=== PATIENT | male | born 1975 | race Caucasian/White ===

== ENCOUNTER 2016-11-26 05:24 | Inpatient (IN) | payer BC, OTHER ==
[2016-11-25 12:44] VITALS: BMI 35.8
[~2016-11-26] VITALS: Ht 190.5 cm; Wt 123.0 kg
[2016-11-26] VITALS (26 sets, daily range): BP systolic 128–149; BP diastolic 65–91; PULSE 63–100; RESP 6–23; Ht 190.5 cm; Wt 123.0 kg
[2016-11-26] MEDS ORDERED: CEFAZOLIN 2 GM/50 ML (PMX) 50 ML IVPB ONE (06:00)
[2016-11-26] MEDS ORDERED: LACTATED RINGER'S 1,000 ML IV* ONE (06:00)
[2016-11-26] MEDS ORDERED: GELATIN SIZE 100 SPONGE ONE ×2 (06:39→10:21)
[2016-11-26] MEDS ORDERED: HEPARIN 1000 UNITS/ML 10 ML INJ ONE (06:40)
[2016-11-26] MEDS ORDERED: CEFAZOLIN 1 GM INJ ONE ×2 (06:40→14:09)
--- NOTE | 2016-11-26 06:48 | HPN ---
Date/Time of Note Date/Time of Note DATE: 11/26/16 TIME: 06:48 Interval H&P Admission Note Pt. seen H&P reviewed: No system changes ANGELICA DWYER MD Nov 26, 2016 06:48
[2016-11-26] MEDS ORDERED: MIDAZOLAM 1 MG/ML 2 ML INJ ONE (07:38)
[2016-11-26] MEDS ORDERED: PHENYLephrine (100 MCG/ML) 5ML SYG ONE (07:58)
[2016-11-26] MEDS: THROMBIN 5000 UNIT VIAL ONE ×2 (08:36→10:02)
[2016-11-26] MEDS ORDERED: GELATIN SIZE 100 SPONGE TOP ONE (08:36)
[2016-11-26] MEDS ORDERED: HEMOSTATIC MATRIX SYG ZFS ONE (10:02)
[2016-11-26] MEDS ORDERED: THROMBIN 5000 UNIT VIAL ONE (10:22)
[2016-11-26] MEDS ORDERED: hydrALAzine 20 MG INJ ONE (10:43)
[2016-11-26] MEDS ORDERED: LIDOCAINE 2%/EPI 30 ML INJ ONE ×2 (12:14→12:41)
[2016-11-26] MEDS ORDERED: LIDOCAINE 2% (SDV) 5 ML INJ ONE (14:06)
[2016-11-26] MEDS ORDERED: PROPOFOL 40 ML ONE (14:06)
[2016-11-26] MEDS ORDERED: ROCURONIUM 50 MG INJ ONE (14:06)
[2016-11-26] MEDS ORDERED: ONDANSETRON 4 MG INJ ONE (14:07)
[2016-11-26] MEDS ORDERED: HYDROmorphONE 0.2 MG/ML PCA ONE (14:23)
[2016-11-26] MEDS ORDERED: HYDROmorphONE 0.2 MG/ML PCA IV SCH (14:30)
[2016-11-26] MEDS ORDERED: NACL 0.9% 3 ML SYG IV SCH (14:30)
[2016-11-26] MEDS ORDERED: HYDROCODONE/APAP (5/325) TAB PO PRN ×2 (14:30)
[2016-11-26] MEDS ORDERED: DIPHENHYDRAMINE 50 MG CAP PO PRN (14:30)
[2016-11-26] MEDS ORDERED: ONDANSETRON 4 MG INJ IV PRN ×2 (14:30→15:00)
[2016-11-26] MEDS ORDERED: PROCHLORPERAZINE 10 MG TAB PO PRN (14:30)
[2016-11-26] MEDS ORDERED: NALOXONE (0.4 MG/ML) INJ IV PRN (14:30)
[2016-11-26] MEDS ORDERED: MEPERIDINE 25 MG INJ ONE (14:58)
[2016-11-26] MEDS ORDERED: DIPHENHYDRAMINE 50 MG INJ IV PRN (15:00)
[2016-11-26] MEDS ORDERED: HYDROmorphONE (0.2 MG/ML) 10ML SYG IV PRN ×2 (15:00)
[2016-11-26] MEDS ORDERED: FENTAnyl 50 MCG/ML VIAL IV PRN (15:00)
[2016-11-26] MEDS ORDERED: hydrALAzine 20 MG INJ IV PRN (15:00)
[2016-11-26] MEDS ORDERED: LABETALOL HCL 20MG INJ IV PRN (15:00)
[2016-11-26] MEDS ORDERED: MEPERIDINE 25 MG INJ IV PRN (15:00)
[2016-11-26] MEDS ORDERED: METOCLOPRAMIDE 10 MG INJ ONE (15:04)
--- NOTE | 2016-11-26 15:10 | RADRPT ---
PROCEDURE: Intraoperative fluoroscopy. CLINICAL INDICATION: Intraoperative fluoroscopy during lumbar fusion.. TECHNIQUE: 11 spot intraoperative fluoroscopic images were provided. The images were reviewed on a high-resolution PACS workstation. COMPARISON: None available FINDINGS: Multiple spot intraoperative fluoroscopic views were provided during lumbar fusion. The images demo nstrate initial metallic probe at the L4 level. Subsequent images demonstrate anterior lumbar interb cathy fusion at L4-5 with anterior interbody fusion device in place. Subsequent images demonstrate adelaida red pedicle screws in the L4 and L5 vertebral bodies with associated paraspinal fusion rods. The to myranda fluoroscopy time was 240.3 seconds. IMPRESSION: 1. Multiple spot intraoperative fluoroscopic views during anterior posterior interbody fusion at L4 -5 were provided. 2. Please see operative report of the same day for further information. RPTAT: HGAS .Gerhard Barker MD, Date Time Electronically viewed and signed by .Gerhard Barker MD, MD on 11/26/2016 15:10 .S/
--- NOTE | 2016-11-26 15:11 | OPR ---
Date/Time of Note Date/Time of Note DATE: 11/26/16 TIME: 15:00 Operative Report Free Text/Dictation Date of surgery: 11/26/2016 Pre-Operative Diagnosis: L4-L5 grade 1 isthmic spondylolisthesis with Right greater than Left foraminal stenosis Post-Operative Diagnosis: L4-L5 grade 1 isthmic spondylolisthesis with Right greater than Left foraminal stenosis Procedures Perfoemed: 1. Anterior lumbar interbody fusion L4-L5 2. Insertion of interbody PEEK Cage x 1, with locking screws x4 3. Placement of posterior spinal segmental instrumentation L4-5 4. Posterior spinal fusion L4-5 Instrumentation Used: 1. Synfix Rasheed Stand alone PEEK Cage 12mm height/ 6 degrees lordosis 2. 4.0mm self drilling screws 25mm length x 4 3. Small BMP with use of morselized allograft bone 4. NuVasive Reline MAS system percutaneous screws: L4- 6.5 x 55mm x 2; L5 6.5 x 45mm x 2 5. 45mm rods x 2; set screws x 4 Anesthesia: General Estimated Blood Loss: 300 mL Complications: None Surgeon: Angelica Dwyer MD CoSurgeon: Rahat Perez MD Indication for surgery: The patient is a 41 year-old male who presents with an increasing history of low back and right greater than left lower extremity pain. The patient was found to have an unstable isthmic spondylolisthesis at L4- 5 with right greater than left L4 foraminal stenosis. The patient had failed conservative treatments. Risks, benefits and alternatives to an anterior and posterior spinal fusion with instrumentation were explained to the patient in detail. Risks were described as including but not being limited to: bleeding, infection, visceral injury, nerve injury, vascular injury, nonunion, adjacent segment degeneration, instrumentation failure, lack of symptom relief, myocardial infarction, stroke, and pulmonary embolism, and they wished to proceed. Risks involved with the use of BMP including but not limited to increased cancer risk, retrograde ejaculation and radiculitis were also discussed and patient wished to proceed. Procedure in detail: The patient was identified in the preoperative area and taken to the operating room. Rapid induction of general endotracheal anesthesia was performed. Patient was given 2 g of cefazolin for prophylaxis. The patient was positioned in the supine position on the operative table. All bony prominences were well padded. The patient's abdomen and left flank were prepped and draped in the usual sterile fashion. A transverse skin incision was made at the L4-5 level by our vascular surgeon Dr. Perez. After the exposure was completed, I performed a L4-L5 diskectomy. The disc was incised using a sharp 15 mm blade. I then used a granger elevator to loosen the disk material from the superior and inferior endplates. I then used a rongeur to remove the disc material and a series of curved and straight curettes to evacuate the disc space. I also used a series of pituitaries and kerrisons to ensure appropriate end plate preparation. Attention was placed to ensure removal of disk material to bleeding endplates without violation of the endplate. The depth of our diskectome was also checked under C-arm. I then used the trial rasps to prepare and size the disc space and was able to place a 12 mm spacer with 6 degrees of lordosis. To ensure appropriate sizing of the implant, I checked for fit and placement under C arm control and I felt the 6 degree lordotic 12 mm cage gained good lordosis and mandaen of disc height and was an appropriate fit. I also ensured appropriate reduction of the grade 1 isthmic spondylolisthesis. I then inserted the Synfix PEEK 12mm, 6 degree lordotic cage after the trail. This cage was filled with a small BMP (3 sponges ) and morselized bone allograft. Four locking screws (4.0 x 25mm) were then placed using the guide under fluoroscopy . Additional morselized allograft was placed around and anterior to the cage in the disc space. The wound was irrigated. The wound was then closed by our vascular access surgeon in standard technique. The posterior rectus sheath and anterior rectus sheath were both repaired. Sterile dressing was then placed. Attention was then turned toward placement of posterior spinal segmental instrumentation at L4-5 after the patient was flipped carefully to the prone position. All bony prominences were well padded. The patient's lumbar spine was then prepped and draped in sterile fashion. Using intraoperative fluoroscopy, the pedicles were identified at each level (bilateral L4 and L5). Care was taken to alter the fluoroscopic view to have a true AP and lateral at each level. Jamshidi needles were then passed down to the lateral aspect of the pedicles through stab incisions. The Jamshidi needles were malleted into the pedicles (bilateral L4 and L5). These were also performed under EMG guidance. Care was taken to ensure that the needles did not pass the medial wall of the pedicle on the AP view prior to checking that the needle was past the posterior wall of the vertebral body. The needles were then malleted further into the vertebral bodies themselves. Guidewires were passed through the needles and the needles were removed. Taps were applied over the guidewires. Screws were then placed bilaterally at L4 and L5 into the vertebral bodies. AP and lateral views confirmed appropriate placement of the instrumentation. Attention was turned toward the posterior spinal fusion at L4-5. Rods were selected of the appropriate length and placed into the screw heads. End caps were applied and final tightening was performed using a [id number] wrench. The exposed the facet joints were decorticated. A small remaining amount of allograft was placed into the facet joints to facilitate the posterior fusion. The wound was irrigated copiously using normal saline. The fascia was then closed using 0 Vicryl in interrupted fashion. Subcutaneous tissue was closed using 2-0 Vicryl in interrupted fashion. Skin was closed using a running 4-0 Monocryl stitch. The wounds were dressed using Dermabond, sterile gauze and Tegaderm. The patient was returned to the supine position. The patient was extubated immediately postoperatively and taken to the recovery room in stable condition. Patient tolerated the procedure well and left the operating room in stable condition. Anesthesia Type: general Estimated Blood Loss: 250 - 300 ml's Specimens L4-5 disk Pt Condition Post Procedure: stable Disposition: PACU ANGELICA DWYER MD Nov 26, 2016 15:11
[2016-11-26] MEDS ORDERED: MEPERIDINE 25 MG INJ IV ONE (15:17)
[2016-11-26] MEDS ORDERED: METOCLOPRAMIDE 10 MG INJ IV ONE (15:30)
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
[2016-11-26] MEDS: CEFAZOLIN 1 GM/50 ML (PMX) 50 ML IVPB SCH ×2 (18:54→23:49)
[2016-11-26] MEDS: ACETAMINOPHEN 325 MG TAB PO PRN (20:43)
[2016-11-27 00:01] VITALS: BP 128/63; RESP 19
[2016-11-27] MEDS: ACETAMINOPHEN 325 MG TAB PO PRN (01:46)
[2016-11-27 02:00] VITALS: BP 123/71; PULSE 90; RESP 18
[2016-11-27 05:31] LABS: BASOPHILS % 0.2 % (0.0-2.0); HEMATOCRIT 37.9 % (42.0-52.0); HEMOGLOBIN 12.4 g/dl (14.0-18.0); LYMPHOCYTES # 1.9 10^3/ul (0.8-2.9); LYMPHOCYTES % 16.3 % (15.0-51.0); MEAN CORPUSCULAR HEMOGLOBIN 30.6 pg (29.0-33.0); MEAN CORPUSCULAR HGB CONC 32.7 g/dl (32.0-37.0); MEAN CORPUSCULAR VOLUME 93.6 fl (82.0-101.0); MEAN PLATELET VOLUME 8.9 fl (7.4-10.4); MONOCYTE # 1.3 10^3/ul (0.3-0.9); MONOCYTES % 11.2 % (0.0-11.0); PLATELET COUNT 205 10^3/UL (140-415); RED BLOOD COUNT 4.05 10^6/ul (4.70-6.10); RED CELL DISTRIBUTION WIDTH 12.4 % (11.5-14.5); WHITE BLOOD COUNT 11.8 10^3/ul (4.8-10.8)
[2016-11-27] MEDS: CEFAZOLIN 1 GM/50 ML (PMX) 50 ML IVPB SCH ×2 (05:56→13:21)
[2016-11-27 05:58] LABS: CALCIUM 8.4 mg/dl (8.4-10.2); CREATININE 1.04 mg/dl (0.61-1.24); POTASSIUM 4.1 mmol/L (3.5-5.1)
[2016-11-27] MEDS ORDERED: LORAZEPAM 2 MG INJ IV ONE (07:00)
[2016-11-27] MEDS ORDERED: DEXTROSE 5%-0.9% NACL 1,000 ML IV SCH (07:00)
[2016-11-27 08:00] VITALS: BP 122/71; RESP 20
[2016-11-27] MEDS ORDERED: METOCLOPRAMIDE 10 MG INJ IV PRN (12:30)
--- NOTE | 2016-11-27 12:35 | CONS ---
Date/Time of Note Date/Time of Note DATE: 11/27/16 TIME: 12:02 Consultation Date/Type/Reason Admit Date/Time Nov 26, 2016 at 05:24 Initial Consult Date 11/26/16 Type of Consultation: Ortho Spine Referring Provider: ANGELICA DWYER MD 24 HR Interval Summary Free Text/Dictation Ortho Spine Daily Progress Note S: 41 yo male with L4-5 isthmic spondylolisthesis POD#1 s/p L4-5 ALIF with PSIF. Patient had low grade fever x2 over night. He otherwise had no acute events over night. His pain is under good control with Dilaudid SERVICE DELIVERY ANALYST. He will be working with physical therapy today. He complains of some mild low back pain over incision sites. He reports that he is having mostly abdominal pain. He has been tolerating a clear liquid diet. He denies any nausea. He has not had any emesis. He has not passed any gas. He denies any chest pain or shortness of breath. O: VS - Last 72 Hours, by Label Date Time Temp Pulse Resp B/P Pulse Ox O2 Delivery O2 Flow Rate FiO2 11/27/16 08:00 98.9 86 20 122/71 95 11/27/16 07:35 Nasal Cannula 2.0 11/27/16 05:00 20 11/27/16 02:00 98.9 90 18 123/71 96 Nasal Cannula 3.0 11/27/16 00:01 100.2 104 19 128/63 97 11/26/16 22:00 99.3 90 16 129/65 97 Nasal Cannula 3.0 11/26/16 20:00 100.3 100 16 129/70 97 Nasal Cannula 3.0 11/26/16 20:00 Nasal Cannula 3.0 11/26/16 19:40 98.9 106 19 139/65 96 11/26/16 19:00 88 16 145/81 95 Nasal Cannula 3.0 11/26/16 18:00 18 11/26/16 18:00 91 16 147/84 95 Nasal Cannula 3.0 11/26/16 17:30 91 16 142/84 95 Nasal Cannula 3.0 11/26/16 17:00 90 16 149/79 95 Nasal Cannula 3.0 11/26/16 16:45 83 16 128/85 95 Nasal Cannula 3.0 11/26/16 16:30 82 16 141/81 95 Nasal Cannula 3.0 11/26/16 16:15 98.6 82 16 131/83 95 Nasal Cannula 3.0 11/26/16 15:38 80 14 147/79 98 Nasal Cannula 2.0 11/26/16 15:33 80 14 136/79 98 Nasal Cannula 2.0 11/26/16 15:28 84 15 140/83 100 Nasal Cannula 2.0 11/26/16 15:23 84 14 144/87 97 Nasal Cannula 2.0 11/26/16 15:18 86 20 147/91 100 Nasal Cannula 2.0 11/26/16 15:13 94 23 149/76 100 Nasal Cannula 2.0 11/26/16 15:08 92 23 146/71 100 Nasal Cannula 2.0 11/26/16 15:03 74 21 140/86 100 Nasal Cannula 2.0 11/26/16 14:58 82 12 134/80 99 Nasal Cannula 2.0 11/26/16 14:53 86 13 142/70 97 Nasal Cannula 2.0 11/26/16 14:48 86 6 145/73 98 Nasal Cannula 2.0 11/26/16 14:43 86 21 144/75 97 Room Air 11/26/16 14:38 88 12 146/78 97 Room Air 11/26/16 14:38 88 12 146/78 97 Room Air 11/26/16 14:34 98.0 11/26/16 14:33 90 14 145/82 100 Room Air 11/26/16 14:33 90 14 145/82 100 Room Air 11/26/16 14:31 22 11/26/16 14:28 98.0 98 11 144/75 100 Room Air 11/26/16 14:28 98.0 88 11 144/75 100 Room Air 11/26/16 06:14 98.8 63 18 134/77 97 Room Air Physical Exam: General: AAOx3, NAD Spine: Anterior and posterior dressings are C/D/I, LLE: 5/5 HF/KE/TA/GS/EHL; RLE : 5/5 HF/KE, 3/5 TA/GS/EHL, +SILT L3-S1 LLE and decreased sensation globally on right foot (neuro exam unchanged since prior to surgery) Abdomen: moderate distension but soft, mild tenderness to palpation Laboratory Tests Test 11/27/16 04:36 11/27/16 04:37 Sodium Level 142mmol/L Potassium Level 4.1mmol/L Chloride Level 104mmol/L Carbon Dioxide Level 31mmol/L Anion Gap 11 Blood Urea Nitrogen 8mg/dl Creatinine 1.04mg/dl Glucose Level 149mg/dl Calcium Level 8.4mg/dl White Blood Count 11.810^3/ul Red Blood Count 4.0510^6/ul Hemoglobin 12.4g/dl Hematocrit 37.9% Mean Corpuscular Volume 93.6fl Mean Corpuscular Hemoglobin 30.6pg Mean Corpuscular Hemoglobin Concent 32.7g/dl Red Cell Distribution Width 12.4% Platelet Count 60269^3/UL Mean Platelet Volume 8.9fl Neutrophils % 72.0% Lymphocytes % 16.3% Monocytes % 11.2% Eosinophils % 0.0% Basophils % 0.2% Nucleated Red Blood Cells % 0.0/100WBC Neutrophils # (Manual) 8.510^3/ul Lymphocytes # 1.910^3/ul Monocytes # 1.310^3/ul Eosinophils # 0.010^3/ul Basophils # 0.010^3/ul Nucleated Red Blood Cells # 0.010^3/ul A/P:41 yo male with L4-5 isthmic spondylolisthesis POD#1 s/p L4-5 ALIF with PSIF 1. continue clear diet until patient passes gas 2. continue dilaudid SERVICE DELIVERY ANALYST for pain control (patient using very little Dilaudid 0.3 mg x 3 over past 12 hrs); he will use Dilaudid sparingly given abdominal distension 3. IV tylenol 1000mg BID prn pain 4. add reglan 10 mg IV prn nausea and to help with GI motility 5. appreciate med recs and continue IV fluids 6. continue PT Exam/Review of Systems Vital Signs Vitals Vital Signs Date Time Temp Pulse Resp B/P Pulse Ox O2 Delivery O2 Flow Rate FiO2 11/27/16 08:00 98.9 86 20 122/71 95 11/27/16 07:35 Nasal Cannula 2.0 Intake and Output 11/26/16 11/26/16 11/27/16 15:00 23:00 07:00 Intake Total 1600 ml 350 ml 1600 ml Output Total 700 ml 300 ml 2100 ml Balance 900 ml 50 ml -500 ml Results Result Diagram: 11/27/16 0437 11/27/16 0436 Results 24 hrs Laboratory Tests Test 11/27/16 04:36 11/27/16 04:37 Sodium Level 142 Potassium Level 4.1 Chloride Level 104 Carbon Dioxide Level 31 Anion Gap 11 Blood Urea Nitrogen 8 Creatinine 1.04 Glucose Level 149 Calcium Level 8.4 White Blood Count 11.8 H Red Blood Count 4.05 L Hemoglobin 12.4 L Hematocrit 37.9 L Mean Corpuscular Volume 93.6 Mean Corpuscular Hemoglobin 30.6 Mean Corpuscular Hemoglobin Concent 32.7 Red Cell Distribution Width 12.4 Platelet Count 205 Mean Platelet Volume 8.9 Neutrophils % 72.0 Lymphocytes % 16.3 Monocytes % 11.2 H Eosinophils % 0.0 Basophils % 0.2 Nucleated Red Blood Cells % 0.0 Neutrophils # (Manual) 8.5 H Lymphocytes # 1.9 Monocytes # 1.3 H Eosinophils # 0.0 Basophils # 0.0 Nucleated Red Blood Cells # 0.0 Medications Medications Current Medications Acetaminophen/ Hydrocodone Bitart ([place] (5/325)) 1 tab Q4H PRN PO PAIN LEVEL 1 -5; Start 11/26/16 at 14:30 Acetaminophen/ Hydrocodone Bitart 2 tab 2 tab Q4H PRN PO PAIN LEVEL 6-10; Start 11/26/16 at 14:30 Cefazolin Sodium (Ancef 1 Gm/50 ml (Pmx)) 50 ml @ 100 mls/hr Q6 IVPB Last administered on 11/27/16 05:56; Admin Dose 100 MLS/HR; Start 11/26/16 at 18:00; Stop 11/27/16 at 12:29 Prochlorperazine (Compazine) 10 mg Q4H PRN PO NAUSEA AND/OR VOMITING; Start 11/26/16 at 14:30 Ondansetron HCl (Zofran Inj) 4 mg Q6H PRN IV NAUSEA AND/OR VOMITING Last administered on 11/26/16 20:44; Admin Dose 4 MG; Start 11/26/16 at 14:30 Acetaminophen (Tylenol Tab) 650 mg Q4H PRN PO TEMP GREATER THAN 101F OR SILVESTRE Last administered on 11/27/16 01:46; Admin Dose 650 MG; Start 9/6/17 at 14:30 Diphenhydramine HCl (Benadryl) 50 mg Q6H PRN PO PRURITUS; Start 11/26/16 at 14: 30 Hydromorphone HCl (Dilaudid SERVICE DELIVERY ANALYST) Q4PCA IV Last administered on 11/26/16 14:31 ; Admin Dose 6 MG; Start 11/26/16 at 14:30 Naloxone HCl 0.2 mg 0.2 mg Q2M PRN IV RR 8 BREATHS/MIN OR LESS; Start 11/26/16 at 14:30 Dextrose/Sodium Chloride (D5-NS) 1,000 ml @ 100 mls/hr Q10H IV Last administered on 11/27/16 06:52; Admin Dose 100 MLS/HR; Start 11/27/16 at 07:00 ANGELICA DWYER MD Nov 27, 2016 12:35
[2016-11-27] MEDS ORDERED: HYDROmorphONE 0.2 MG/ML PCA IV SCH (13:00)
[2016-11-27] MEDS: ACETAMINOPHEN 1000MG/100ML IV 100 ML IVPB PRN ×2 (13:59→23:08)
[2016-11-27 14:47] VITALS: BP 130/74; RESP 18
[2016-11-27] MEDS: D5W-0.45 NACL + KCL 20 MEQ 1,000 ML IV SCH (16:13)
--- NOTE | 2016-11-27 18:26 | CONS ---
Date/Time of Note Date/Time of Note DATE: 11/27/16 TIME: 18:22 Assessment/Plan Assessment/Plan Problems: (1) Postoperative ileus Status: Acute Comment: This complication was expected as a possibility due to anterior approach in his spinal surgery. Patient will be made n.p.o. and placed on IV dextrose with half-normal saline and potassium at maintenance. Once his appetite returns, will Hep-Lock IV fluid. Will monitor this with you. (2) Aftercare following surgery of the musculoskeletal system Status: Acute Comment: Besides the ileus patient is otherwise doing fair on postop day #1. Will monitor for other potential medical issues as they might arise. Consultation Date/Type/Reason Admit Date/Time Nov 26, 2016 at 05:24 Initial Consult Date 11/26/16 Type of Consultation: Medicine Reason for Consultation Medical management Referring Provider: ANGELICA DWYER MD 24 HR Interval Summary Constitutional: requiring IVF Detailed Summary Respiratory: no complaints Cardiovascular: no complaints Gastrointestinal: decreased appetite, flatus, other (Distended, bloated, and gassy), pain Genitourinary: no complaints Musculoskeletal: back pain, bone/joint pain (Right ankle) Neurologic: no complaints Exam/Review of Systems Vital Signs Vitals VS - Last 72 Hours, by Label Date Time Temp Pulse Resp B/P Pulse Ox O2 Delivery O2 Flow Rate FiO2 11/27/16 17:00 16 11/27/16 14:47 99.8 92 18 130/74 99 11/27/16 13:30 16 11/27/16 09:00 16 11/27/16 08:00 98.9 86 20 122/71 95 11/27/16 07:35 Nasal Cannula 2.0 11/27/16 05:00 20 11/27/16 02:00 98.9 90 18 123/71 96 Nasal Cannula 3.0 11/27/16 00:01 100.2 104 19 128/63 97 11/26/16 22:00 99.3 90 16 129/65 97 Nasal Cannula 3.0 11/26/16 20:00 100.3 100 16 129/70 97 Nasal Cannula 3.0 11/26/16 20:00 Nasal Cannula 3.0 11/26/16 19:40 98.9 106 19 139/65 96 11/26/16 19:00 88 16 145/81 95 Nasal Cannula 3.0 11/26/16 18:00 18 11/26/16 18:00 91 16 147/84 95 Nasal Cannula 3.0 11/26/16 17:30 91 16 142/84 95 Nasal Cannula 3.0 11/26/16 17:00 90 16 149/79 95 Nasal Cannula 3.0 11/26/16 16:45 83 16 128/85 95 Nasal Cannula 3.0 11/26/16 16:30 82 16 141/81 95 Nasal Cannula 3.0 11/26/16 16:15 98.6 82 16 131/83 95 Nasal Cannula 3.0 11/26/16 15:38 80 14 147/79 98 Nasal Cannula 2.0 11/26/16 15:33 80 14 136/79 98 Nasal Cannula 2.0 11/26/16 15:28 84 15 140/83 100 Nasal Cannula 2.0 11/26/16 15:23 84 14 144/87 97 Nasal Cannula 2.0 11/26/16 15:18 86 20 147/91 100 Nasal Cannula 2.0 11/26/16 15:13 94 23 149/76 100 Nasal Cannula 2.0 11/26/16 15:08 92 23 146/71 100 Nasal Cannula 2.0 11/26/16 15:03 74 21 140/86 100 Nasal Cannula 2.0 11/26/16 14:58 82 12 134/80 99 Nasal Cannula 2.0 11/26/16 14:53 86 13 142/70 97 Nasal Cannula 2.0 11/26/16 14:48 86 6 145/73 98 Nasal Cannula 2.0 11/26/16 14:43 86 21 144/75 97 Room Air 11/26/16 14:38 88 12 146/78 97 Room Air 11/26/16 14:38 88 12 146/78 97 Room Air 11/26/16 14:34 98.0 11/26/16 14:33 90 14 145/82 100 Room Air 11/26/16 14:33 90 14 145/82 100 Room Air 11/26/16 14:31 22 11/26/16 14:28 98.0 98 11 144/75 100 Room Air 11/26/16 14:28 98.0 88 11 144/75 100 Room Air 11/26/16 06:14 98.8 63 18 134/77 97 Room Air Vital Signs Date Time Temp Pulse Resp B/P Pulse Ox O2 Delivery O2 Flow Rate FiO2 11/27/16 17:00 16 11/27/16 14:47 99.8 92 130/74 99 11/27/16 07:35 Nasal Cannula 2.0 Intake and Output 11/26/16 11/26/16 11/27/16 15:00 23:00 07:00 Intake Total 1600 ml 350 ml 1600 ml Output Total 700 ml 300 ml 2100 ml Balance 900 ml 50 ml -500 ml Exam Constitutional: alert, obese, oriented Psych: nl mood/affect, no complaints Respiratory: clear to auscultation, normal air movement Cardiovascular: nl pulses, regular rate and rhythm Gastrointestinal: distended, nl liver, spleen, soft, tender (Diffuse), No bowel sounds, No mass, No non-tender, No rebound or guarding Musculoskeletal: nl extremities to inspection Extremities: normal pulses, No clubbing, No cyanosis, No edema Neurological: DEPARTMENT ASSISTANT II-XII intact, nl mental status, nl speech, nl strength Results Result Diagram: 11/27/167 11/27/16 0436 Results 24 hrs Laboratory Tests Test 11/27/16 04:36 11/27/16 04:37 Sodium Level 142 Potassium Level 4.1 Chloride Level 104 Carbon Dioxide Level 31 Anion Gap 11 Blood Urea Nitrogen 8 Creatinine 1.04 Glucose Level 149 Calcium Level 8.4 White Blood Count 11.8 H Red Blood Count 4.05 L Hemoglobin 12.4 L Hematocrit 37.9 L Mean Corpuscular Volume 93.6 Mean Corpuscular Hemoglobin 30.6 Mean Corpuscular Hemoglobin Concent 32.7 Red Cell Distribution Width 12.4 Platelet Count 205 Mean Platelet Volume 8.9 Neutrophils % 72.0 Lymphocytes % 16.3 Monocytes % 11.2 H Eosinophils % 0.0 Basophils % 0.2 Nucleated Red Blood Cells % 0.0 Neutrophils # (Manual) 8.5 H Lymphocytes # 1.9 Monocytes # 1.3 H Eosinophils # 0.0 Basophils # 0.0 Nucleated Red Blood Cells # 0.0 Medications Medications Current Medications Acetaminophen/ Hydrocodone Bitart ([place] (5/325)) 1 tab Q4H PRN PO PAIN LEVEL 1 -5; Start 11/26/16 at 14:30 Acetaminophen/ Hydrocodone Bitart ([place] (5/325)) 2 tab Q4H PRN PO PAIN LEVEL 6 -10; Start 11/26/16 at 14:30 Ondansetron HCl (Zofran Inj) 4 mg Q6H PRN IV NAUSEA AND/OR VOMITING Last administered on 11/26/16 20:44; Admin Dose 4 MG; Start 11/26/16 at 14:30 Acetaminophen (Tylenol Tab) 650 mg Q4H PRN PO TEMP GREATER THAN 101F OR SILVESTRE Last administered on 11/27/16 01:46; Admin Dose 650 MG; Start 11/26/16 at 14:30 Diphenhydramine HCl (Benadryl) 50 mg Q6H PRN PO PRURITUS; Start 11/26/16 at 14: 30 Naloxone HCl (Narcan) 0.2 mg Q2M PRN IV RR 8 BREATHS/MIN OR LESS; Start at 14:30 Metoclopramide HCl (Reglan) 10 mg BID PRN IV NAUSEA Last administered on 13:59; Admin Dose 10 MG; Start 11/27/16 at 12:30 Simethicone 160 mg 160 mg BID PRN PO DISTENSION/GAS/BLOATING Last administered on 11/27/16 13:59; Admin Dose 160 MG; Start 11/27/16 at 12:30 Acetaminophen (Ofirmev 1000mg/ 100ml Iv) 100 ml @ 400 mls/hr BID PRN IVPB MODERATE PAIN LEVEL 4-6 Last administered on 11/27/16 13:59; Admin Dose 400 MLS/ HR; Start 11/27/16 at 12:30 Hydromorphone HCl (Dilaudid MEDICAL FIELD REPRESENTATIVE) Q4PCA IV ; Start 11/27/16 at 13:00 Cyclobenzaprine HCl 5 mg 5 mg TID PRN PO MUSCLE SPASMS; Start 11/27/16 at 13:30 Potassium Chloride/Dextrose/ Sod Cl (D5-1/2ns + KCl 20 Meq) 1,000 ml @ 125 mls/ hr Q8H IV Last administered on 11/27/16 16:13; Admin Dose 125 MLS/HR; Start 11/27/16 at 13:30 ENID AMAYA MD Nov 27, 2016 18:26
[2016-11-27 19:40] VITALS: BP 135/74; RESP 20
[2016-11-27] MEDS: CYCLOBENZAPRINE 10 MG TAB PO PRN (21:29)
[2016-11-27 22:10] VITALS: BP 138/79; PULSE 97
[2016-11-28] MEDS: D5W-0.45 NACL + KCL 20 MEQ 1,000 ML IV SCH (00:31)
[2016-11-28 02:30] VITALS: BP 136/78; PULSE 88; RESP 18
[2016-11-28 08:10] VITALS: BP 133/60; RESP 18
--- NOTE | 2016-11-28 08:46 | CONS ---
Date/Time of Note Date/Time of Note DATE: 11/28/16 TIME: 08:33 Consultation Date/Type/Reason Admit Date/Time Nov 26, 2016 at 05:24 Initial Consult Date 11/26/16 Type of Consultation: Ortho Spine Referring Provider: ANGELICA DWYER MD 24 HR Interval Summary Free Text/Dictation Ortho Spine Daily Progress Note S: 41 yo male with L4-5 isthmic spondylolisthesis POD#2 s/p L4-5 ALIF with PSIF. Patient had no acute events over-night. He is passing gas and now tolerating clears. He will be working with physical therapy today. He complains of some mild low back pain over incision sites. He reports improvement in his abdominal pain. He has been tolerating a clear liquid diet. He is passing gas. He denies any nausea. He has not had any emesis. He denies any chest pain or shortness of breath. He was out of bed to a chair yesterday but had an episode of orthostatic hypotension when he got up with physical therapy. O: Physical Exam: General: AAOx3, NAD Spine: Anterior and posterior dressings are C/D/I, LLE: 5/5 HF/KE/TA/GS/EHL; RLE : 5/5 HF/KE, 3/5 TA/GS/EHL, +SILT L3-S1 LLE and decreased sensation globally on right foot (neuro exam unchanged since prior to surgery) Abdomen: mild to moderate abdominal distension improved from yesterday, mild tenderness to palpation, +BS Laboratory Tests Test 11/27/16 04:36 11/27/16 04:37 Sodium Level 142mmol/L Potassium Level 4.1mmol/L Chloride Level 104mmol/L Carbon Dioxide Level 31mmol/L Anion Gap 11 Blood Urea Nitrogen 8mg/dl Creatinine 1.04mg/dl Glucose Level 149mg/dl Calcium Level 8.4mg/dl White Blood Count 11.810^3/ul Red Blood Count 4.0510^6/ul Hemoglobin 12.4g/dl Hematocrit 37.9% Mean Corpuscular Volume 93.6fl Mean Corpuscular Hemoglobin 30.6pg Mean Corpuscular Hemoglobin Concent 32.7g/dl Red Cell Distribution Width 12.4% Platelet Count 57598^3/UL Mean Platelet Volume 8.9fl Neutrophils % 72.0% Lymphocytes % 16.3% Monocytes % 11.2% Eosinophils % 0.0% Basophils % 0.2% Nucleated Red Blood Cells % 0.0/100WBC Neutrophils # (Manual) 8.510^3/ul Lymphocytes # 1.910^3/ul Monocytes # 1.310^3/ul Eosinophils # 0.010^3/ul Basophils # 0.010^3/ul Nucleated Red Blood Cells # 0.010^3/ul A/P:41 yo male with L4-5 isthmic spondylolisthesis POD#2 s/p L4-5 ALIF with PSIF 1. advance diet to regular 2. D/C DIRECTOR OF RECRUITMENT AND ADMISSIONS and start PO [place] 3. D/C haddad catheter 4. IV tylenol 1000mg BID prn pain 5. continue PT Exam/Review of Systems Vital Signs Vitals Vital Signs Date Time Temp Pulse Resp B/P Pulse Ox O2 Delivery O2 Flow Rate FiO2 11/28/16 08:10 98.0 91 18 133/60 96 11/28/16 02:30 Room Air 11/27/16 07:35 2.0 Intake and Output 11/27/16 11/27/16 11/28/16 14:59 22:59 06:59 Intake Total 1575 ml 800 ml Output Total 1100 ml 1700 ml Balance 475 ml -900 ml Results Result Diagram: 11/27/167 11/27/16435 Medications Medications Current Medications Acetaminophen/ Hydrocodone Bitart ([place] (5/325)) 1 tab Q4H PRN PO PAIN LEVEL 1 -5; Start 11/26/16 at 14:30 Acetaminophen/ Hydrocodone Bitart ([place] (5/325)) 2 tab Q4H PRN PO PAIN LEVEL 6 -10; Start 11/26/16 at 14:30 Ondansetron HCl (Zofran Inj) 4 mg Q6H PRN IV NAUSEA AND/OR VOMITING Last administered on 11/26/16 20:44; Admin Dose 4 MG; Start 11/26/16 at 14:30 Acetaminophen (Tylenol Tab) 650 mg Q4H PRN PO TEMP GREATER THAN 101F OR SILVESTRE Last administered on 11/27/16 01:46; Admin Dose 650 MG; Start 11/26/16 at 14:30 Diphenhydramine HCl (Benadryl) 50 mg Q6H PRN PO PRURITUS; Start 11/26/16 at 14: 30 Naloxone HCl (Narcan) 0.2 mg Q2M PRN IV RR 8 BREATHS/MIN OR LESS; Start at 14:30 Metoclopramide HCl (Reglan) 10 mg BID PRN IV NAUSEA Last administered on 13:59; Admin Dose 10 MG; Start 11/27/16 at 12:30 Simethicone (Mylicon) 160 mg BID PRN PO DISTENSION/GAS/BLOATING Last administered on 11/27/16 13:59; Admin Dose 160 MG; Start 11/27/16 at 12:30 Cyclobenzaprine HCl (Flexeril) 5 mg TID PRN PO MUSCLE SPASMS Last administered on 11/27/16 21:29; Admin Dose 5 MG; Start 11/27/16 at 13:30 ANGELICA DWYER MD Nov 28, 2016 08:45
[2016-11-28] MEDS: CYCLOBENZAPRINE 10 MG TAB PO PRN ×2 (10:26→21:31)
[2016-11-28 15:18] VITALS: BP 128/64; RESP 18
--- NOTE | 2016-11-28 18:01 | CONS ---
Date/Time of Note Date/Time of Note DATE: 11/28/16 TIME: 17:57 Assessment/Plan Assessment/Plan Problems: (1) Postoperative ileus Status: Resolved Comment: Patient resuming diet. Monitor to see how it is tolerated (2) Aftercare following surgery of the musculoskeletal system Status: Acute Comment: Patient improving dramatically on postop day #2, continue physical therapy and ambulation. Pain well controlled. Possibly ready for discharge tomorrow. Will defer to primary team. Consultation Date/Type/Reason Admit Date/Time Nov 26, 2016 at 05:24 Initial Consult Date 11/26/16 Type of Consultation: Endocrinology Reason for Consultation Medical management Referring Provider: ANGELICA DWYER MD 24 HR Interval Summary Constitutional: improved, no complaints Detailed Summary Respiratory: no complaints Cardiovascular: no complaints Gastrointestinal: flatus, other (Bloating), No decreased appetite Genitourinary: no complaints Musculoskeletal: back pain (Improved versus yesterday, now able to ambulate with physical therapy) Neurologic: no complaints Exam/Review of Systems Vital Signs Vitals VS - Last 72 Hours, by Label Date Time Temp Pulse Resp B/P Pulse Ox O2 Delivery O2 Flow Rate FiO2 11/28/16 15:18 97.8 90 18 128/64 94 11/28/16 08:10 98.0 91 18 133/60 96 11/28/16 02:30 99.0 88 18 136/78 94 Room Air 11/28/16 01:00 18 11/27/16 22:10 98.9 97 138/79 11/27/16 21:00 18 11/27/16 19:40 99.2 76 20 135/74 91 11/27/16 17:00 16 11/27/16 14:47 99.8 92 18 130/74 99 11/27/16 13:30 16 11/27/16 09:00 16 11/27/16 08:00 98.9 86 20 122/71 95 11/27/16 07:35 Nasal Cannula 2.0 11/27/16 05:00 20 11/27/16 02:00 98.9 90 18 123/71 96 Nasal Cannula 3.0 11/27/16 00:01 100.2 104 19 128/63 97 11/26/16 22:00 99.3 90 16 129/65 97 Nasal Cannula 3.0 11/26/16 20:00 100.3 100 16 129/70 97 Nasal Cannula 3.0 11/26/16 20:00 Nasal Cannula 3.0 11/26/16 19:40 98.9 106 19 139/65 96 11/26/16 19:00 88 16 145/81 95 Nasal Cannula 3.0 11/26/16 18:00 18 11/26/16 18:00 91 16 147/84 95 Nasal Cannula 3.0 11/26/16 17:30 91 16 142/84 95 Nasal Cannula 3.0 11/26/16 17:00 90 16 149/79 95 Nasal Cannula 3.0 11/26/16 16:45 83 16 128/85 95 Nasal Cannula 3.0 11/26/16 16:30 82 16 141/81 95 Nasal Cannula 3.0 11/26/16 16:15 98.6 82 16 131/83 95 Nasal Cannula 3.0 11/26/16 15:38 80 14 147/79 98 Nasal Cannula 2.0 11/26/16 15:33 80 14 136/79 98 Nasal Cannula 2.0 11/26/16 15:28 84 15 140/83 100 Nasal Cannula 2.0 11/26/16 15:23 84 14 144/87 97 Nasal Cannula 2.0 11/26/16 15:18 86 20 147/91 100 Nasal Cannula 2.0 11/26/16 15:13 94 23 149/76 100 Nasal Cannula 2.0 11/26/16 15:08 92 23 146/71 100 Nasal Cannula 2.0 11/26/16 15:03 74 21 140/86 100 Nasal Cannula 2.0 11/26/16 14:58 82 12 134/80 99 Nasal Cannula 2.0 11/26/16 14:53 86 13 142/70 97 Nasal Cannula 2.0 11/26/16 14:48 86 6 145/73 98 Nasal Cannula 2.0 11/26/16 14:43 86 21 144/75 97 Room Air 11/26/16 14:38 88 12 146/78 97 Room Air 11/26/16 14:38 88 12 146/78 97 Room Air 11/26/16 14:34 98.0 11/26/16 14:33 90 14 145/82 100 Room Air 11/26/16 14:33 90 14 145/82 100 Room Air 11/26/16 14:31 22 11/26/16 14:28 98.0 98 11 144/75 100 Room Air 11/26/16 14:28 98.0 88 11 144/75 100 Room Air 11/26/16 06:14 98.8 63 18 134/77 97 Room Air Vital Signs Date Time Temp Pulse Resp B/P Pulse Ox O2 Delivery O2 Flow Rate FiO2 11/28/16 15:18 97.8 90 18 128/64 94 11/28/16 02:30 Room Air 11/27/16 07:35 2.0 Intake and Output 11/27/16 11/27/16 11/28/16 15:00 23:00 07:00 Intake Total 1575 ml 800 ml Output Total 1100 ml 1700 ml Balance 475 ml -900 ml Exam Constitutional: alert, obese, oriented Psych: nl mood/affect, no complaints Respiratory: clear to auscultation, normal air movement Cardiovascular: nl pulses, regular rate and rhythm, No edema, No murmurs/extra sounds, No rub Gastrointestinal: bowel sounds, nl liver, spleen, soft, tender (Bilateral lower quadrant), No mass, No non-tender, No rebound or guarding Musculoskeletal: nl extremities to inspection Extremities: normal pulses, No clubbing, No cyanosis, No edema Neurological: CLEANER TOUCH UP WORKER II-XII intact, nl mental status, nl speech, nl strength Results Result Diagram: 11/27/1643611/27/166 Medications Medications Current Medications Acetaminophen/ Hydrocodone Bitart ([place] (5/325)) 1 tab Q4H PRN PO PAIN LEVEL 1 -5; Start 11/26/16 at 14:30 Acetaminophen/ Hydrocodone Bitart ([place] (5/325)) 2 tab Q4H PRN PO PAIN LEVEL 6 -10; Start 11/26/16 at 14:30 Ondansetron HCl (Zofran Inj) 4 mg Q6H PRN IV NAUSEA AND/OR VOMITING Last administered on 11/26/16 20:44; Admin Dose 4 MG; Start 11/26/16 at 14:30 Acetaminophen (Tylenol Tab) 650 mg Q4H PRN PO TEMP GREATER THAN 101F OR SILVESTRE Last administered on 11/27/16 01:46; Admin Dose 650 MG; Start 11/26/16 at 14:30 Diphenhydramine HCl (Benadryl) 50 mg Q6H PRN PO PRURITUS; Start 11/26/16 at 14: 30 Naloxone HCl (Narcan) 0.2 mg Q2M PRN IV RR 8 BREATHS/MIN OR LESS; Start at 14:30 Metoclopramide HCl (Reglan) 10 mg BID PRN IV NAUSEA Last administered on 13:59; Admin Dose 10 MG; Start 11/27/16 at 12:30 Simethicone (Mylicon) 160 mg BID PRN PO DISTENSION/GAS/BLOATING Last administered on 11/27/16 13:59; Admin Dose 160 MG; Start 11/27/16 at 12:30 Cyclobenzaprine HCl (Flexeril) 5 mg TID PRN PO MUSCLE SPASMS Last administered on 11/28/16 10:26; Admin Dose 5 MG; Start 11/27/16 at 13:30 ENID AMAYA MD Nov 28, 2016 18:01
[2016-11-28 19:21] VITALS: BP 121/66; RESP 22
[2016-11-29 02:43] VITALS: BP 130/78; RESP 19
[2016-11-29 08:02] VITALS: BP 128/78; RESP 18
--- NOTE | 2016-11-29 11:00 | PDOCDIS ---
Discharge Instructions CONDITION Patient Condition: Good HOME CARE INSTRUCTIONS: Diet Instructions: Regular ACTIVITY: Activity Restrictions: Slowly Increase Activity Rest between Activity Avoid heavy lifting Do not operate Machinery Do not operate Power Tool Avoid Heavy Housework Bathing Restrictions: Shower FOLLOW UP/APPOINTMENTS Follow-up Plan Follow-up with Dr. Dwyer in 2 weeks ANGELICA DWYER MD Nov 29, 2016 11:00
[2016-11-29] MEDS ORDERED: CYCL-319 PO (11:02)
--- NOTE | 2016-11-29 11:32 | CONS ---
Date/Time of Note Date/Time of Note DATE: 11/29/16 TIME: 11:27 Consultation Date/Type/Reason Admit Date/Time Nov 26, 2016 at 05:24 Initial Consult Date 11/26/16 Type of Consultation: Ortho Spine Reason for Consultation Ortho Spine Daily Progress Note S: 41 yo male with L4-5 isthmic spondylolisthesis POD#3 s/p L4-5 ALIF with PSIF. Patient had no acute events over-night. He is tolerating a regular diet. He is passing gas. He had a BMx2. Jones was D/C yesterday and patient is urinating without difficulty. He walked 500ft x 2 with PT and has been cleared for discharge. He reports minimal pain and has only been taking flexeril for pain control. He reports improvement in his abdominal pain. He denies any nausea. He has not had any emesis. He denies any chest pain or shortness of breath. He reports improvement in back pain. O: Physical Exam: General: AAOx3, NAD Spine: Anterior and posterior incisions are C/D/I, LLE: 5/5 HF/KE/TA/GS/EHL; RLE : 5/5 HF/KE, 3/5 TA/GS/EHL, +SILT L3-S1 LLE and decreased sensation globally on right foot (neuro exam unchanged since prior to surgery) Abdomen: mildl distension improved from yesterday, no tenderness to palpation, + BS Laboratory Tests Test 11/27/16 04:36 11/27/16 04:37 Sodium Level 142mmol/L Potassium Level 4.1mmol/L Chloride Level 104mmol/L Carbon Dioxide Level 31mmol/L Anion Gap 11 Blood Urea Nitrogen 8mg/dl Creatinine 1.04mg/dl Glucose Level 149mg/dl Calcium Level 8.4mg/dl White Blood Count 11.810^3/ul Red Blood Count 4.0510^6/ul Hemoglobin 12.4g/dl Hematocrit 37.9% Mean Corpuscular Volume 93.6fl Mean Corpuscular Hemoglobin 30.6pg Mean Corpuscular Hemoglobin Concent 32.7g/dl Red Cell Distribution Width 12.4% Platelet Count 40484^3/UL Mean Platelet Volume 8.9fl Neutrophils % 72.0% Lymphocytes % 16.3% Monocytes % 11.2% Eosinophils % 0.0% Basophils % 0.2% Nucleated Red Blood Cells % 0.0/100WBC Neutrophils # (Manual) 8.510^3/ul Lymphocytes # 1.910^3/ul Monocytes # 1.310^3/ul Eosinophils # 0.010^3/ul Basophils # 0.010^3/ul Nucleated Red Blood Cells # 0.010^3/ul A/P:41 yo male with L4-5 isthmic spondylolisthesis POD#3 s/p L4-5 ALIF with PSIF 1. continue regular diet 2. X-Rays today (2 views Lumbar spine upright standing) 3. D/C home today 4. dressing change performed Referring Provider: ANGELICA DWYER MD Exam/Review of Systems Vital Signs Vitals Vital Signs Date Time Temp Pulse Resp B/P Pulse Ox O2 Delivery O2 Flow Rate FiO2 11/29/16 08:02 99.0 82 18 128/78 95 11/28/16 02:30 Room Air 11/27/16 07:35 2.0 Intake and Output 11/28/16 11/28/16 11/29/16 15:00 23:00 07:00 Intake Total 400 ml 940 ml Output Total 500 ml 800 ml Balance -100 ml 140 ml Results Result Diagram: 11/27/16 0437 11/27/16 0436 Medications Medications Current Medications Acetaminophen/ Hydrocodone Bitart ([place] (5/325)) 1 tab Q4H PRN PO PAIN LEVEL 1 -5; Start 11/26/16 at 14:30 Acetaminophen/ Hydrocodone Bitart ([place] (5/325)) 2 tab Q4H PRN PO PAIN LEVEL 6 -10; Start 11/26/16 at 14:30 Ondansetron HCl (Zofran Inj) 4 mg Q6H PRN IV NAUSEA AND/OR VOMITING Last administered on 11/26/16 20:44; Admin Dose 4 MG; Start 11/26/16 at 14:30 Acetaminophen (Tylenol Tab) 650 mg Q4H PRN PO TEMP GREATER THAN 101F OR SILVESTRE Last administered on 11/27/16 01:46; Admin Dose 650 MG; Start 11/26/16 at 14:30 Diphenhydramine HCl (Benadryl) 50 mg Q6H PRN PO PRURITUS; Start 11/26/16 at 14: 30 Naloxone HCl (Narcan) 0.2 mg Q2M PRN IV RR 8 BREATHS/MIN OR LESS; Start at 14:30 Metoclopramide HCl (Reglan) 10 mg BID PRN IV NAUSEA Last administered on 13:59; Admin Dose 10 MG; Start 11/27/16 at 12:30 Simethicone (Mylicon) 160 mg BID PRN PO DISTENSION/GAS/BLOATING Last administered on 11/27/16 13:59; Admin Dose 160 MG; Start 11/27/16 at 12:30 Cyclobenzaprine HCl (Flexeril) 5 mg TID PRN PO MUSCLE SPASMS Last administered on 11/28/16 21:31; Admin Dose 5 MG; Start 11/27/16 at 13:30 ANGELICA DWYER MD Nov 29, 2016 11:32
--- NOTE | 2016-11-29 14:15 | RADRPT ---
PROCEDURE: XR Lumbar Spine. CLINICAL INDICATION: Postop evaluation. TECHNIQUE: AP, lateral, and cone-down lateral view of the lumbar spine were obtained. COMPARISON: No prior studies are available for comparison. FINDINGS: There are postoperative changes from anterior posterior lumbar discectomy and fusion at L4-5. There are paired pedicle screws in L4 and L5 vertebral bodies with associated paraspinal fusion rods. Ther e is an anterior interbody fusion device in place pain. The marrow density is within normal limits. The alignment of the lumbar spine is within normal limits. The paraspinal soft tissues unremarkable. IMPRESSION: 1. Postoperative changes from anterior posterior lumbar discectomy and fusion at L4-5 with intact s urgical hardware. RPTAT: HGAS .Gerhard Barker MD, Date Time Electronically viewed and signed by .Gerhard Barker MD, on 11/29/2016 14:15 .S/
--- NOTE | 2016-11-29 14:49 | DS ---
DATE OF ADMISSION: 11/26/2016 DATE OF DISCHARGE: 11/29/2016 ADMISSION DIAGNOSIS: L4-5 isthmic spondylolisthesis with right greater than left foraminal stenosis. DISCHARGE DIAGNOSIS: Same. PROCEDURES PERFORMED DURING THIS ADMISSION: 1. Anterior lumbar interbody fusion, L4-5. 2. Posterior spinal instrumented fusion, L4-5. HOSPITAL COURSE: The patient is a pleasant 41-year-old male with a chronic history of low back pain, with right lower extremity greater than left lower extremity pain. He was found to have L4- 5 isthmic spondylolisthesis. His pain failed to improve with a conservative course of treatment. On November 26, 2016, he was admitted to [facility] [place] and underwent an anterior lumbar interbody fusion with posterior spinal instrumentation and fusion. His surgery had no complications. Postoperatively, he was transferred in stable condition to PACU and then to the surgical floor. During the course of his admission, he had some mild to moderate abdominal distention, which resolved with a short period of bowel rest. Prior to discharge, he had a bowel movement, was passing gas, and was cleared by Physical Therapy. Prior to discharge, he was urinating well. His pain is under good control with p.o. pain medications. Medications to take at discharge: 1. Flexeril 5 mg p.o. b.i.d. p.r.n. for muscle spasm. 2. [place] 5/325 mg 1-2 tabs q.6 hours p.r.n. for pain. Diet at discharge is regular. Activities at discharge: The patient was told to avoid any heavy lifting greater than 20 pounds. He was told to avoid any excessive bending or twisting. Wound care: The patient was told that he would be able to take a shower once discharged. He was told to try to keep the wound clean and dry. He was given a series of dressing changes to cover his wounds. Follow-up appointments: The patient will follow up with Dr. Rowland in 2 weeks for repeat evaluation. He was told to contact our office at an earlier time if there are any issues with his wound or if he develops any motor or sensory changes. Dictated By: Benitez Rowland MD /em/jigar /Document#: [id number]
== END 2016-11-29 15:00 | disposition home or self-care (01) | DRG 460 ==
LOC: REC 05:24 → MS1 16:13
PROVIDERS: ADMIT Orthopaedic Surgery; ATTEND Orthopaedic Surgery
PROC: 0ST20ZZ Resection of Lumbar Vertebral Disc, Open Approach (ICD-10-PCS; 2016-11-26)
PROC: 0SG00A0 Fusion of Lumbar Vertebral Joint with Interbody Fusion Device, Anterior Approach, Anterior Column, Open Approach (ICD-10-PCS; principal; 2016-11-26 07:30)
DX: M43.16 Spondylolisthesis, lumbar region (principal); E66.01 Morbid (severe) obesity due to excess calories; M48.06 Spinal stenosis, lumbar region; Z68.33 Body mass index [BMI] 33.0-33.9, adult
CPT/HCPCS: 72100; 72114; 80048; 85025; 86850; 86900; 86901; 86920; 97116; 97162; 97530; C1762; J0131; J0360; J0690; J1170; J1200; J1644; J2175; J2250; J2370; J2405; J2765; J3010; J3480; J7042; L8699